=== PATIENT | male | born 1940 | race Caucasian/White ===

== ENCOUNTER 2017-10-31 10:10 | Emergency (ER) | payer MEDICARE, OTHER ==
[~2017-10-31] VITALS: Ht 185.4 cm; Wt 81.6 kg
[~2017-10-31 10:10] MED LIST: TEKTURNA
[2017-10-31 11:38] VITALS: BP 138/62
[2017-10-31] MEDS ORDERED: TETRACAINE HCL 0.5% OPTH(EYE) SOLN 4ML EACHEYE ONE (12:45)
[2017-10-31] MEDS ORDERED: FLUORESCEIN SOD 1 MG TEST STRIP OP ONE (12:45)
== END 2017-10-31 13:10 | disposition home or self-care (01) ==
LOC: ER 10:10
DX: T15.02XA Foreign body in cornea, left eye, initial encounter (principal); I10 Essential (primary) hypertension; E78.5 Hyperlipidemia, unspecified; X58.XXXA Exposure to other specified factors, initial encounter; Y93.89 Activity, other specified; Y92.69 Other specified industrial and construction area as the place of occurrence of the external cause; Y99.8 Other external cause status
CPT/HCPCS: 65220